=== PATIENT | female | born 1990 | race Caucasian/White ===

== ENCOUNTER 2022-04-08 16:39 | Emergency (ER) | payer BC, OTHER ==
[2022-04-08 17:37] LABS: ANION GAP 5.9 meq/L (7-15); CHLORIDE,CL 106 mmol/L (98-107); ESTIMATED GFR 97 mL/min (>=60); SODIUM,NA 141 mmol/L (136-145)
[2022-04-08 17:50] VITALS: BP 120/77; PULSE 86
== END 2022-04-08 18:33 | disposition home or self-care (01) ==
LOC: LL.ED 16:39
DX: U07.1 COVID-19 (principal); Z88.8 Allergy status to other drugs, medicaments and biological substances; Z79.899 Other long term (current) drug therapy
CPT/HCPCS: 36415; 80053; 83605; 85025; 87040; 99283